=== PATIENT | male | born 1965 | race Caucasian/White ===

== ENCOUNTER → 2018-04-18 07:57 | Outpatient (CLI) | payer OTHER, SELFPAY ==
--- NOTE | 2018-04-18 | DI.MRI.S_ITS ---
PROCEDURE: MR LUMBAR SPINE WO CON INDICATIONS: LUMBAR REGION RADICULOPATHY TECHNIQUE: Noncontrast sagittal T1 spin echo and T2 fast echo, sagittal STIR, axial T1 and T2 fast spin echo through the lumbar spine. In cases with scoliosis, additional coronal T2 fast spin echo may be performed. COMPARISON: None. FINDINGS: Image quality: Excellent. Alignment and Curvature: There is normal bony alignment. Bone Marrow: Marrow is of normal overall signal. No acute vertebral body compression fractures. Spinal Cord: Conus medullaris terminates at the T12-L1 level. Visualized cord demonstrates normal signal and size. Paraspinous Soft Tissues: No paravertebral masses. T12-L1: Normal appearance. L1-L2: Normal appearance. L2-L3: The disc height and disk signal are well-preserved. Mild disc bulge is seen, which is eccentric to the left. Mild bilateral neural foraminal narrowing is seen. Minimal central canal narrowing is seen. L3-L4: The disc height and disk signal are well-preserved. Mild to moderate disc bulge is seen. Mild facet joint hypertrophy is seen. Moderate bilateral neural foraminal narrowing is seen, left worse than right. Mild central canal narrowing is seen. L4-L5: The disc height and disk signal are well-preserved. Mild generalized disc bulge is seen. Mild bilateral neural foraminal narrowing is seen. Mild central canal narrowing is seen. L5-S1: The disc height is well-preserved. Loss of disc signal is seen at this level. Mild disc bulge is seen, with a central/left disc protrusion, as on series 6 image 6 with mass effect upon the transiting left S1 nerve root. Mild facet joint hypertrophy is seen. There is mild left-sided and no significant right-sided neural foraminal narrowing seen. Mild central canal narrowing is seen. IMPRESSION: Lumbar spine degenerative changes are seen, which are overall most prominent at the L5-S1 level. Dictated by: Conor Joyner M.D. on 04/18/2018 at 8:46 Approved by: Conor Joyner M.D. on 04/18/2018 at 8:50
== END ==
DX: M51.16 Intervertebral disc disorders with radiculopathy, lumbar region (principal)
CPT/HCPCS: 72148

== ENCOUNTER → 2019-09-13 10:54 | Outpatient (CLI) | payer OTHER, SELFPAY ==
--- NOTE | 2019-09-13 | DI.RAD.S_ITS ---
PROCEDURE: FL SHOULDER INJECTION MR/CT RT INDICATIONS: hx of shoulder injury TECHNIQUE: The indications, alternatives, benefits, risks, and complications of the procedure were explained to the patient. Written informed consent was obtained and placed in the chart. The shoulder was examined fluoroscopically and a site for needle placement chosen for entry into the glenohumeral joint from an anterior approach. The skin was prepped and draped in a sterile fashion, and 1% lidocaine infiltrated from skin down to joint capsule. A spinal needle was inserted into the glenohumeral joint, and a small amount of iodinated contrast media injected to confirm intra-articular placement of the needle tip. This was followed by approximately 12 mL dilute solution of a gadolinium containing MR contrast agent. The needle was removed and a dressing was applied. The patient was given postprocedural instructions and sent to the MR suite for MR imaging. FINDINGS: A single fluoroscopic spot image demonstrates intra-articular location of injected iodinated contrast. IMPRESSION: Successful fluoroscopically guided administration of dilute Gadolinium solution into the shoulder joint for MR arthrogram. Dictated by: Alexis Abarca M.D. on 09/13/2019 at 12:34 Approved by: Alexis Abarca M.D. on 09/13/2019 at 12:34
== END ==
PROVIDERS: Visit Provider Nurse Practitioner Family
DX: S49.91XA Unspecified injury of right shoulder and upper arm, initial encounter (principal); X58.XXXA Exposure to other specified factors, initial encounter
CPT/HCPCS: 23350; 77002

== ENCOUNTER → 2021-07-04 08:28 | Outpatient (CLI) | payer OTHER, SELFPAY ==
--- NOTE | 2021-07-04 08:30 | DI.RAD.S_ITS ---
PROCEDURE: XR LUMBAR SPINE MIN 4V INDICATIONS: BACK PAIN TECHNIQUE: 5 views of the lumbar spine were acquired, including bilateral oblique views. COMPARISON: None. FINDINGS: Bones: No acute fracture. Multilevel degenerative endplate sclerosis and spurring. Diffuse facet arthropathy. Mild narrowing of the L5-S1 disc space. There is lower thoracic spondylosis and facet disease. Soft tissues: Overlying bowel gas pattern is normal. No suspicious soft tissue calcifications. Oblique images: No pars defects. IMPRESSION: Mild lumbar spondylosis as above. Dictated by: Duc Saldivar M.D. on 07/04/2021 at 10:31 Approved by: Duc Saldivar M.D. on 07/04/2021 at 10:33
== END ==
PROVIDERS: PCP Nurse Practitioner Family; Referring Provider Physical Medicine & Rehabilitation; Visit Provider Physical Medicine & Rehabilitation
DX: M54.9 Dorsalgia, unspecified (principal); M47.816 Spondylosis without myelopathy or radiculopathy, lumbar region; M51.27 Other intervertebral disc displacement, lumbosacral region
CPT/HCPCS: 72110; 99214

== ENCOUNTER → 2021-07-26 10:05 | Outpatient (CLI) | payer OTHER, SELFPAY ==
--- NOTE | 2021-07-26 10:06 | DI.MRI.S_ITS ---
PROCEDURE: MR LUMBAR SPINE WO CON INDICATIONS: Left L5 radiculopathy TECHNIQUE: Noncontrast sagittal T1 spin echo and T2 fast echo, sagittal STIR, axial T1 and T2 fast spin echo through the lumbar spine. In cases with scoliosis, additional coronal T2 fast spin echo may be performed. COMPARISON: [facility] [place], CR, XR LUMBAR SPINE WITH OBLIQUES, 06/27/2018, 9:18. [facility], MR, MR LUMBAR SPINE WO CON, 04/18/2018, 8:43. [facility], CR, XR LUMBAR SPINE MIN 4V, 07/04/2021, 8:33. FINDINGS: Image quality: Excellent. Alignment and Curvature: There is normal bony alignment. Bone Marrow: Marrow is of normal overall signal. No acute vertebral body compression fractures. Spinal Cord: Conus medullaris terminates at the T12-L1 disc level. Visualized cord demonstrates normal signal and size. Paraspinous Soft Tissues: No paravertebral masses. T12-L1: Slight loss of disc signal. No central stenosis. No neural foraminal narrowing. No neural compression. L1-L2: Normal appearance. L2-L3: Loss of disc signal. Mild, diffuse disc bulge. Mild narrowing of the central canal. Mild bilateral neural foraminal narrowing. No neural compression. L3-L4: Loss of disc signal. Mild, diffuse disc bulge. Mild bilateral facet hypertrophy. Mild narrowing of the central canal. Mild bilateral neural foraminal narrowing. No neural compression. Fissure noted in the anterior annulus. L4-L5: Slight loss of disc signal. Mild bilateral facet hypertrophy. No central stenosis. Mild bilateral neural foraminal narrowing. No neural compression. L5-S1: Loss of disc signal. Mild, diffuse disc bulge. Mild bilateral facet hypertrophy. No central stenosis. Mild left neural foraminal narrowing. No neural compression. IMPRESSION: 1. Mild multilevel degenerative disc disease. 2. Mild multilevel facet arthropathy. 3. No severe central canal narrowing. 4. No severe neural foraminal narrowing. 5. No neural compression. Dictated by: Rafia Mccarthy MD, PhD on 07/26/2021 at 21:14 Approved by: Rafia Mccarthy MD, PhD on 07/26/2021 at 21:18
== END ==
PROVIDERS: PCP Nurse Practitioner Family; Referring Provider Physical Medicine & Rehabilitation; Visit Provider Physical Medicine & Rehabilitation
DX: M51.16 Intervertebral disc disorders with radiculopathy, lumbar region (principal); M51.17 Intervertebral disc disorders with radiculopathy, lumbosacral region; M47.26 Other spondylosis with radiculopathy, lumbar region; M47.27 Other spondylosis with radiculopathy, lumbosacral region
CPT/HCPCS: 72148

== ENCOUNTER → 2021-09-02 14:04 | Outpatient (CLI) | payer OTHER, SELFPAY ==
[2021-09-02 16:53] LABS: COVID19 -Nasal RAPID Negative (Negative)
== END ==
PROVIDERS: PCP Nurse Practitioner Family; Referring Provider Physical Medicine & Rehabilitation; Visit Provider Physical Medicine & Rehabilitation
DX: Z20.822 Contact with and (suspected) exposure to COVID-19 (principal)
CPT/HCPCS: 87635; C9803

== ENCOUNTER 2021-09-04 12:37 | Outpatient (CLI) | payer OTHER, SELFPAY ==
[2021-09-04] VITALS (9 sets, daily range): BP systolic 114–146; BP diastolic 69–82; PULSE 70–83; RESP 13–20; TEMP 36.8; O2SAT 94–97
--- NOTE | 2021-09-04 12:38 | DI.RAD.S_ITS ---
PROCEDURE: PAIN L/S TRANSFORAMINAL INJECT INDICATIONS: SPONDYLOSIS COMPARISON: None. FINDINGS: Fluoroscopic spot filming was performed to verify placement of spinal needles at the lower lobe level(s), as labeled on the films. Appropriate location(s) of the needle tip(s) was confirmed by injection of iodinated contrast. IMPRESSION: Needle placement as above. Dictated by: Christiano Campo M.D. on 09/04/2021 at 14:46 Approved by: Christiano Campo M.D. on 09/04/2021 at 15:10
[2021-09-04] MEDS: fentaNYL 100 MCG/2 ML INJ 50 MCG IV (13:05)
[2021-09-04] MEDS: MIDAZOLAM 5 MG/5 ML VIAL IV (13:09)
[2021-09-04] MEDS: IOPAMIDOL 15 ML VIAL 3 ML INJ (13:10)
[2021-09-04] MEDS: BUPIVACAINE 0.25% (PF) VIAL 2 ML INJ (13:10)
[2021-09-04] MEDS: BETAMETHASONE 30 MG/5 ML MDV 6 MG INJ (13:11)
[2021-09-04] MEDS: DEXAMETHASONE 10 MG/ML VIAL 20 MG INJ (13:11)
--- NOTE | 2021-09-04 13:20 | PM.PROC.IR.1 ---
Date/Time/Diagnoses Date of procedure: 09/04/21 Time of procedure: 13:20 Pre-procedure diagnosis: 1. FORAMINAL STENOSIS WITH LE SYMPTOMS Post-procedure diagnosis: same Procedure Notes Procedure: 1. FLUOROSCOPICALLY GUIDED CONTRAST CONTROLLED TRANSFORAMINAL EPIDURAL STEROID INJECTION - Left L5/S1 Indications: Mustapha Espinoza is referred by MIRIAM Alvarenga for treatment of Foraminal Stenosis with Left LE Symptoms Physician: Jake Lamar Total Fluoroscopy time (seconds): 9 Total sedation minutes: 10 Complications: none Procedure in detail & Post-procedure care: FINDINGS Foraminal Nerve Root Compression secondary to disc disease and facet hypertrophy DESCRIPTION OF PROCEDURE Following review of allergy and review of potential side effects and complications, including, but not necessarily limited to, infection, allergic reaction, local tissue breakdown, stroke, temporary or permanent nerve injury, paralysis, and possible , the patient indicated that the patient understood and agreed to proceed. An informed consent document was signed by the patient, witnessed by a nurse, and placed in the patient's chart. Additionally, other treatment options including medications, modalities, and physical therapy were reviewed with the patient. After review of previous anaesthesic history and IV conscious sedation the patient was deemed safe to proceed with today?s procedure with IV conscious sedation as ASA class II designation. Safety time-out was performed to confirm patient ID, procedure to be performed and site of procedure. IV sedation was accomplished with a combination of 4mg of Versed and 50mcg of Fentanyl was administered by the RN after DO order, titrated to patient comfort during the course of the procedure while the patient remained responsive to all verbal commands In the prone position following sterile prep and drape of the lumbar region, the Left L5/S1 posterior neuroforamen was identified fluoroscopically. The skin was anesthetized via a 25-gauge 1.5-inch needle with 1% lidocaine solution. At this point, a 25-gauge 3.5-inch spinal needle was atraumatically introduced and advanced under fluoroscopic guidance through the posterior Left L5/S1 neuroforamen to approximately the anterior aspect of the canal. Depth was confirmed on lateral view. Following negative aspiration, injection of approximately 1.5 cc of Isovue 200 under live fluoroscopy in the AP view confirmed excellent flow along the nerve root, into the epidural space without vascular or intrathecal uptake observed Radiological data, including multiple fluoroscopic views of the lumbosacral spine, reveal a spinal needle at the Left L5/S1 posterior neuroforamen. Subsequent views show flow of contrast material flowing superiorly and inferiorly along the nerve root confirming epidural flow. Subsequently, a test dose of 1.5 cc of 1% lidocaine solution was administered and patient was observed for two minutes for signs or symptoms of complications, including abdominal pain, shortness of breath, bilateral upper or lower extremity weakness, nausea and vomiting, prior to steroid injection. At this point, a total of 3cc or 20mg of dexamethasone and 6mg of betamethasone was injected without incident. The procedure tolerated the procedure well without signs or symptoms of complications prior to transfer to the recovery area continued monitoring without incident. The patient was then transferred to the recovery area where they were observed for an appropriate time after the injection. The patient reported a VAS score of 7 prior to the procedure and a post-procedure VAS of 0. POST OP INSTRUCTIONS The patient was provided a Pain Log to continue to record their response to the target-specific procedure prior to follow-up visit with their referring physician. Additionally, specific post-injection care instructions and a contact number to our office were provided if concerns arise regarding possible complications associated with the procedure are suspected.
== END 2021-09-04 13:45 | disposition home or self-care (01) ==
PROVIDERS: PCP Nurse Practitioner Family; Referring Provider Physical Medicine & Rehabilitation; Visit Provider Physical Medicine & Rehabilitation
DX: M48.07 Spinal stenosis, lumbosacral region (principal); M51.17 Intervertebral disc disorders with radiculopathy, lumbosacral region
CPT/HCPCS: 64483; 99152; J0702; J1100; J2250; J3010

== ENCOUNTER → 2021-12-29 15:17 | Outpatient (CLI) | payer OTHER, SELFPAY ==
[2021-12-29 16:47] LABS: COVID19 -Nasal RAPID Negative (Negative)
== END ==
PROVIDERS: PCP Nurse Practitioner Family; Visit Provider Physical Medicine & Rehabilitation
DX: Z20.822 Contact with and (suspected) exposure to COVID-19 (principal)
CPT/HCPCS: 87635; C9803

== ENCOUNTER 2022-01-01 07:52 | Outpatient (CLI) | payer OTHER, SELFPAY ==
[2022-01-01] VITALS (8 sets, daily range): BP systolic 120–146; BP diastolic 74–94; PULSE 62–74; RESP 13–22; TEMP 36.9; O2SAT 93–98
--- NOTE | 2022-01-01 07:53 | DI.RAD.S_ITS ---
PROCEDURE: PAIN L INTERLAMINAR/CAUDAL INJ INDICATIONS: Spondylosis COMPARISON: None. FINDINGS: Fluoroscopic spot filming was performed to verify placement of spinal needles at the left L5-S1 interlaminar space level(s), as labeled on the films. Appropriate location(s) of the needle tip(s) was confirmed by injection of iodinated contrast. IMPRESSION: [place] needle tip at the left L5-S1 interlaminar space for translaminar epidural steroid injection. Dictated by: Rafia Mccarthy MD, PhD on 01/01/2022 at 11:10 Approved by: Rafia Mccarthy MD, PhD on 01/01/2022 at 11:11
[2022-01-01] MEDS: MIDAZOLAM 5 MG/5 ML VIAL IV (09:31)
[2022-01-01] MEDS: IOPAMIDOL 15 ML VIAL 3 ML INJ (09:36)
[2022-01-01] MEDS: DEXAMETHASONE 10 MG/ML VIAL 20 MG INJ (09:37)
[2022-01-01] MEDS: BETAMETHASONE 30 MG/5 ML MDV 6 MG INJ (09:37)
[2022-01-01] MEDS: BUPIVACAINE 0.25% (PF) VIAL 2 ML INJ (09:37)
--- NOTE | 2022-01-01 09:43 | P.PCN_ITS ---
Date/Time/Diagnoses Date of procedure: 01/01/22 Pre-procedure diagnosis: 1. HNP WITH RADICULAR FEATURES, 2. MULTILEVEL CENTRAL STENOSIS, Post-procedure diagnosis: same Procedure Notes Procedure: 1. FLUOROSCOPICALLY GUIDED CONTRAST CONTROLLED INTERLAMINAR EPIDURAL STEROID INJECTION - L5/S1 Indications: Dian is referred by MIRIAM Alvarenga for treatment of Bilateral Foraminal Stenosis L>R LE symptoms. Physician: Jake Lamar Total Fluoroscopy time (seconds): 7 Total sedation minutes: 7 Complications: none Procedure in detail & Post-procedure care: FINDINGS Multilevel Central Spinal Stenosis with Nerve Root Compression DESCRIPTION OF PROCEDURE Fluoroscopically guided, contrast-controlled L5/S1 translaminar epidural steroid injection. Following review of allergy and review of potential side effects and complications, including, but not necessarily limited to, infection, allergic reaction, local tissue breakdown, temporary as well as permanent nerve injury, paralysis, stroke and possible , the patient indicated that the patient understood and agreed to proceed. An informed consent document was signed by the patient, witnessed by a nurse, and placed in the patient's chart. Additionally, other treatment options including modalities, medications, and physical therapy were reviewed with the patient. After review of previous anaesthesic history and IV conscious sedation the patient was deemed safe to proceed with today?s procedure with IV conscious sedation as ASA class II designation. Safety time-out was performed to confirm patient ID, procedure to be performed and site of procedure. IV sedation was accomplished with a combination of 3mg of Versed administered by the RN after DO order, titrated to patient comfort during the course of the procedure while the patient remained responsive to all verbal commands. In the prone position, following sterile prep and drape of the lumbar region, the L5/S1 translaminar space was identified fluoroscopically. The skin was anesthetized via a 25-gauge, 1.5-inch needle with 1% lidocaine solution. At this point, a 22-gauge short bevel spinal needle was atraumatically introduced and advanced under fluoroscopic guidance into the region of the L5/S1 translaminar space. Depth was confirmed on lateral view. Radiological data, including multiple fluoroscopic views of the lumbar spine, reveal a spinal needle at the L5/S1 translaminar space. Lateral views then show placement of the needle in the epidural space. Subsequent views show contrast material flowing superiorly and inferiorly in the epidural space. No vascular or intrathecal uptake is observed. At this point, using loss of resistance technique with saline and air, the epidural space was entered. This was confirmed following negative aspiration w ith injection of approximately 1.5cc of Isovue 200, showing excellent epidural flow without vascular or intrathecal uptake. At this point, 1 cc of 1% lidocaine solution combined with 3cc or 20mg of dexamethasone and 6mg of betamethasone was injected without incident. The patent tolerated the procedure without signs of symptoms of complications prior to transfer to the recovery area for further monitoring. The patient was then transferred to the recovery area where they were observed for an appropriate period of time after the injection. The patient reported a VAS score of 6 prior to the procedure and a post-procedure VAS of 0. POST OP INSTRUCTIONS The patient was provided a Pain Log to continue to record their response to the target-specific procedure prior to follow-up visit with their referring physician. Additionally, specific post-injection care instructions and a contact number to our office were provided if concerns arise regarding possible compli cations associated with the procedure are suspected.
== END 2022-01-01 10:01 | disposition home or self-care (01) ==
LOC: RAD 07:53
PROVIDERS: PCP Nurse Practitioner Family; Referring Provider Physical Medicine & Rehabilitation; Visit Provider Physical Medicine & Rehabilitation
DX: M51.17 Intervertebral disc disorders with radiculopathy, lumbosacral region (principal); M48.07 Spinal stenosis, lumbosacral region
CPT/HCPCS: 62323; J0702; J1100; J2250

== ENCOUNTER 2022-06-25 15:09 | Outpatient (CLI) | payer OTHER, SELFPAY ==
[2022-06-25] VITALS (8 sets, daily range): BP systolic 117–136; BP diastolic 68–80; PULSE 63–74; RESP 15–19; TEMP 37; O2SAT 95–99
--- NOTE | 2022-06-25 15:13 | DI.RAD.S_ITS ---
PROCEDURE: PAIN L/SI FACET INJ/BLK 1STL INDICATIONS: SPONDYLOSIS COMPARISON: [facility], XA, PAIN L INTERLAMINAR/CAUDAL INJ, 01/01/2022, 9:34. FINDINGS: Fluoroscopic spot filming was performed to verify placement of spinal needles on the left at the L3-L4, L4-L5, and L5-S1 levels, as labeled on the films. Appropriate location of the needle tips was confirmed by injection of iodinated contrast. IMPRESSION: Intraprocedural examination demonstrating appropriate positions of the needles. Dictated by: Conor Joyner M.D. on 06/25/2022 at 17:06 Approved by: Conor Joyner M.D. on 06/25/2022 at 17:06
[2022-06-25] MEDS: MIDAZOLAM 2 MG/2 ML VIAL 4 MG IV (16:28)
[2022-06-25] MEDS: IOPAMIDOL 15 ML VIAL 3 ML INJ (16:32)
[2022-06-25] MEDS: BETAMETHASONE 30 MG/5 ML MDV 12 MG INJ (16:32)
[2022-06-25] MEDS: BUPIVACAINE 0.5% MDV 5 ML SUBCUT (16:33)
--- NOTE | 2022-06-25 16:55 | P.PCN_ITS ---
Date/Time/Diagnoses Date of procedure: 06/25/22 Time of procedure: 16:55 Pre-procedure diagnosis: 1. FACET ARTHROPATHY, 2. AXIAL LBP, 3. MULTILEVEL DDD Post-procedure diagnosis: same Procedure Notes Procedure: 1. FLUOROSCOPICALLY GUIDED CONTRAST CONTROLLED FACET JOINT INJECTIONS LEFT L3/4, L4/5, L5/S1 Indications: Dian is referred by MIRIAM Alvarenga for treatment of Axial LBP Physician: Jake Lamar Total Fluoroscopy time (seconds): 8 Total sedation minutes: 13 Complications: none Procedure in detail & Post-procedure care: FINDINGS Multilevel Facet Arthropathy with Clinically significant axial LBP DESCRIPTION OF PROCEDURE Fluoroscopically guided, contrast-controlled left L3/4, L4/5, L5/S1 facet joint injections. Following review of allergy and review of potential side effects and complications, including, but not necessarily limited to, infection, allergic reaction, local tissue breakdown, stroke, temporary or permanent nerve injury, paralysis, and possible , the patient indicated that the patient understood and agreed to proceed. An informed consent document was signed by the patient, witnessed by a nurse, and placed in the patient's chart. Additionally, other treatment options including medications, modalities, and physical therapy were reviewed with the patient. After review of previous anaesthesic history and IV conscious sedation the patient was deemed safe to proceed with today?s procedure with IV conscious sedation as ASA class II designation. Safety time-out was performed to confirm patient ID, procedure to be performed and site of procedure. IV sedation was accomplished with a combination of 4mg of Versed was administered by the RN after DO order, titrated to patient comfort during the course of the procedure while the patient remained responsive to all verbal commands. In the prone position, following sterile prep and drape of the lumbar region, the posterior aspect of the left L3/4, L4/5, L5/S1 facet joints were identified fluoroscopically. The skin was anesthetized via a 25-gauge 1.5-inch needle with 1% lidocaine solution into the corresponding facet joints. At this point, a 22- gauge 3.5-inch spinal needle was atraumatically introduced and advanced under fluoroscopic guidance into the corresponding facet joints. Following negative aspiration, injections of approximately 0.2-cc of Isovue 200 confirmed interarticular placement without vascular uptake. Radiological data, including multiple fluoroscopic views of the lumbosacral spine, reveal a spinal needle at the left L3/4, L4/5, L5/S1 facet joints. Subsequent views show flow of contrast material both superiorly and inferiorly within the joint space without vascular or intrathecal uptake. At this point, a total of 0.5 cc including a mixture of 0.25cc Marcaine and 0.25cc betamethasone was injected without complication into each of the corresponding facet joints. The procedure tolerated the procedure well without signs or symptoms of complications prior to transfer to the recovery area continued monitoring without incident. The patient was then transferred to the recovery area where they were observed for an appropriate period of time after the injection. The patient reported a VAS score of 7 prior to the procedure and a post-procedure VAS of 0. POST OP INSTRUCTIONS The patient was provided a Pain Log to continue to record their response to the target-specific procedure prior to follow-up visit with their referring physician. Additionally, specific post-injection care instructions and a contact number to our office were provided if concerns arise regarding possible complications associated with the procedure are suspected.
== END 2022-06-25 17:06 | disposition home or self-care (01) ==
PROVIDERS: PCP Nurse Practitioner Family; Referring Provider Physical Medicine & Rehabilitation; Visit Provider Physical Medicine & Rehabilitation
DX: M47.816 Spondylosis without myelopathy or radiculopathy, lumbar region (principal); M47.817 Spondylosis without myelopathy or radiculopathy, lumbosacral region; M51.36 Other intervertebral disc degeneration, lumbar region; M51.37 Other intervertebral disc degeneration, lumbosacral region
CPT/HCPCS: 64493; 64494; 64495; 99152; J0702; J2250

== ENCOUNTER 2022-10-27 15:01 | Outpatient (CLI) | payer OTHER, SELFPAY ==
[2022-10-27] VITALS (7 sets, daily range): BP systolic 113–137; BP diastolic 70–88; PULSE 62–81; RESP 13–20; TEMP 36.4; O2SAT 95–97
--- NOTE | 2022-10-27 15:04 | DI.RAD.S_ITS ---
PROCEDURE: PAIN L/SI FACET INJ/BLK 1STL INDICATIONS: SPONDYLOSIS COMPARISON: [facility], , PAIN L/SI FACET INJ/BLK 1STL, 06/25/2022, 16:34. FINDINGS: Fluoroscopic spot filming was performed to verify placement of spinal needles at the needle placement overlying L3 through S1 level(s), as labeled on the films. Appropriate location(s) of the needle tip(s) was confirmed by injection of iodinated contrast. IMPRESSION: Needle placement as above. Dictated by: Sharda Robert M.D. on 10/28/2022 at 13:35 Approved by: Sharda Robert M.D. on 10/28/2022 at 13:36
[2022-10-27] MEDS: MIDAZOLAM 2 MG/2 ML VIAL IV (15:53)
[2022-10-27] MEDS: LIDOCAINE 1% (PF) 5 ML INJ (15:58)
[2022-10-27] MEDS: IOPAMIDOL 15 ML VIAL 3 ML INJ (15:58)
[2022-10-27] MEDS: BUPIVACAINE 0.5% (PF) 30 ML VIAL 5 ML INJ (15:59)
--- NOTE | 2022-11-03 12:10 | PM.PROC.IR.1 ---
Date/Time/Diagnoses Date of procedure: 10/27/22 Time of procedure: 16:50 Pre-procedure diagnosis: 1. FACET ARTHROPATHY Post-procedure diagnosis: same Procedure Notes Procedure: 1. Right L3, L4, L5 and S1 MB BLOCKS LA Indications: Dian is referred by MIRIAM Alvarenga for treatment of Right Axial LBP. Physician: Jake Lamar Total Fluoroscopy time (seconds): 14 Total sedation minutes: 16 Complications: none Procedure in detail & Post-procedure care: DESCRIPTION OF PROCEDURE Fluoroscopically guided, contrast-controlled right L3, L4, L5 and S1 medial branch blocks with 0.5cc of 0.5% Marcaine. Following review of allergy and review of potential side effects and complications, including, but not necessarily limited to, infection, allergic reaction, local tissue breakdown, nerve injury, paralysis, stroke and possible , the patient indicated that the patient understood and agreed to proceed. An informed consent document was signed by the patient, witnessed by a nurse, and placed in the patient's chart. After review of previous anaesthesic history and IV conscious sedation the patient was deemed safe to proceed with today?s procedure with IV conscious sedation as ASA class II designation. Safety time-out was performed to confirm patient ID, procedure to be performed and site of procedure. IV sedation was accomplished with a combination of 2mg of Versed was administered by the RN after DO order, titrated to patient comfort during the course of the procedure while the patient remained responsive to all verbal commands In the prone position, following sterile prep and drape of the lumbar region, the right L3, L4, L5 and S1 anatomical location of the medial branch of the dorsal ramus was identified fluoroscopically. Subsequently an anesthetic skin wheal using 1% lidocaine solution was initiated at each of the anatomical spots. Subsequently then a 22-gauge 3.5-inch spinal needle was atraumatically introduced and advanced under fluoroscopic guidance at each of the corresponding sites at the right L4, L5 and S1 MB. After negative aspiration, 0.2 cc of Isovue 200 was injected, confirming placement without vascular or intrathecal uptake. Subsequently then 0.5 cc of 0.5% Marcaine solution was injected at each of the corresponding sites at the right L3, L4, L5 and S1 medial branch locations. The patient tolerated the procedure well without signs or symptoms of complications. The procedure tolerated the procedure well without signs or symptoms of complications prior to transfer to the recovery area continued monitoring without incident. Post-procedure, the patient was monitored initiating provocative activities to measure the amount of relief from block of the facetogenic pain. The patient reported a VAS of 7 prior to the procedure and a post-procedure VAS of 1. It has been a pleasure to assist in the diagnostic and therapeutic care of your patient. POST OP INSTRUCTIONS The patient was provided with a Pain Log to complete over the next several hours and subsequent days prior to the patient's follow up with the ordering physician. If the patient has 911 telecommunicator relief to the solution applied, then they may be a candidate for medial branch rhizotomy. The patient is aware, was provided, once again, with a Pain Log and will follow up with the referring physician for review and clinical correlation.
== END 2022-10-27 16:29 | disposition home or self-care (01) ==
PROVIDERS: PCP Nurse Practitioner Family; Referring Provider Physical Medicine & Rehabilitation; Visit Provider Physical Medicine & Rehabilitation
DX: M47.816 Spondylosis without myelopathy or radiculopathy, lumbar region (principal); M47.817 Spondylosis without myelopathy or radiculopathy, lumbosacral region
CPT/HCPCS: 64493; 64494; 64495; 99152; J2250

== ENCOUNTER → 2023-06-17 13:06 | Outpatient (CLI) | payer OTHER, SELFPAY | PROVIDERS: Absent Provider Nurse Practitioner Family; Family Provider Nurse Practitioner Family; PCP Nurse Practitioner Family; Referring Provider Physical Medicine & Rehabilitation; Visit Provider Physical Medicine & Rehabilitation | DX: M51.27 Other intervertebral disc displacement, lumbosacral region (principal) | CPT/HCPCS: 95886; 95911 ==

== ENCOUNTER 2023-07-07 18:16 | Emergency (ER) | payer OTHER, SELFPAY ==
[2023-07-07] VITALS (9 sets, daily range): BP systolic 152–166; BP diastolic 89–99; PULSE 82–88; RESP 16–18; TEMP 36.8–37.1; O2SAT 94–97; BMI 33.2
--- NOTE | 2023-07-07 19:10 | DI.RAD.S_ITS ---
PROCEDURE: XR CHEST 1V INDICATIONS: Hemoptysis TECHNIQUE: One view of the chest was acquired. COMPARISON: None. FINDINGS: Surgical changes and devices: None. Lungs and pleura: Right hemidiaphragm elevation the left diaphragmatic eventration. Lungs are clear. No pleural effusions or pneumothorax. Mediastinum: There are prominent soft tissue densities in upper thorax at the thoracic inlet. Mediastinal contours appear normal. Heart size is normal. Bones and chest wall: No suspicious bony lesions. Overlying soft tissues appear unremarkable. IMPRESSION: 1. No acute cardiopulmonary disease. 2. Prominent paratracheal soft tissue in upper thorax bilaterally. Differential diagnoses are substernal goiter versus lymphadenopathy. Consider chest CT for further evaluation. Dictated by: Panfilo Carrillo M.D. on 07/07/2023 at 19:24 Approved by: Panfilo Carrillo M.D. on 07/07/2023 at 19:41
[2023-07-07 22:46] LABS: Add Manual Diff / Slide Review NO; Basophils Absolute Auto 100 /uL (0-100); Basophils Percent Auto 1.2 % (0-2); Eosinophils Absolute Auto 200 /uL (0-450); Hematocrit 44.6 % (41-53); Hemoglobin 15.3 g/dL (13.5-17.5); Lymphocytes Absolute Auto 3900 /uL (1100-4500); Lymphocytes Percent Auto 37.7 % (25-40); Mean Corpuscular HGB Conc 34.3 % (30-36); Mean Corpuscular Hemoglobin 29.6 PG (26-34); Mean Corpuscular Volume 86.4 fL (80-100); Monocytes Absolute Auto 1200 /uL (0-900); Monocytes Percent Auto 11.2 % (3-14); Neutrophils Absolute Auto 4900 /uL (1500-7000); Neutrophils Percent Auto 47.9 % (50-75); Platelet Count 261 X10^3/uL (150-400); Red Blood Cell Count 5.17 X10^6/uL (4.5-5.9); Red Cell Distribution Width 13.3 % (11.6-14.8); White Blood Cell Count 10.3 X10^3/uL (4.5-11.0)
[2023-07-07 22:48] LABS: INR 1.1 (0.9-1.3); Prothrombin Time 12.6 SECONDS (10.1-12.7)
[2023-07-07 22:51] LABS: PTT Partial Thromboplastin Tim 28 SECONDS (26-36)
[2023-07-07 22:53] LABS: Alanine Aminotransferase 39 IU/L (<50); Albumin 4.8 g/dL (3.5-5.0); Albumin Globulin Ratio 1.3 (1.0-2.8); Alkaline Phosphatase 53 U/L (38-126); Aspartate Aminotransferase 38 IU/L (17-59); BUN Creatinine Ratio 26.9 (6-22); Bilirubin Total 0.7 mg/dL (0.2-1.3); Blood Urea Nitrogen 18 mg/dL (9-20); Calcium 9.7 mg/dL (8.4-10.2); Carbon Dioxide 25 mmol/L (22-32); Chloride 97 mmol/L (98-107); Estimated Glomerular Filt Rate > 60 mL/min (>60); Globulin 3.7 g/dL (1.7-4.1); Glucose 112 mg/dL (70-100); HEMOLYSIS < 15 (0-50); Potassium 3.9 mmol/L (3.4-5.1); Sodium 135 mmol/L (137-145); Total Protein 8.5 g/dL (6.3-8.2)
--- NOTE | 2023-07-07 22:55 | ED.URI ---
HPI - URI/Sore Throat General Chief Complaint: Upper Respiratory Symptoms Stated Complaint: coughing up blood Time Seen by Provider: 07/07/23 19:10 Source: patient Mode of arrival: Ambulatory Limitations: no limitations History of Present Illness HPI Narrative: 58-year-old male history of hypertension, dyslipidemia, chronic low back pain with complaint of recent upper respiratory infection that has been improving. Patient is on about day 13 but has had streaks of small amount of blood most days it was initially green yellow sputum has since become clear but has still had very small scant streaks. Patient states no fevers. He states his nasal congestion is resolving. He denies any throat pain or sore throat. He denies any sensation of pressing on his neck or throat, no changes to voice. No chest pain or shortness of breath. No nausea or vomiting. He does still have some persistent cough. Patient denies any nausea or vomiting, no diarrhea constipation, no urinary symptoms. No bruising, petechiae, abnormal bleeding or other changes otherwise. Patient does not take any aspirin or any regular daily anticoagulants. He has not had similar issues in the past. No known drug allergies. Denies any prior surgeries. Former smoker, no recreational drugs. Related Data Home Medications Medication Instructions Recorded Confirmed acetaminophen 500 mg tablet 500 mg PO Q6H PRN 07/04/21 07/05/23 (Tylenol Extra Strength) atorvastatin 20 mg tablet (Lipitor) 20 mg PO DAILY 07/04/21 07/05/23 diclofenac sodium 1 % topical gel 2 g topical QID 07/04/21 07/05/23 metronidazole 1 % topical gel g topical 09/23/22 07/05/23 lisinopril 40 mg tablet 40 mg PO DAILY 04/05/23 07/05/23 hydrochlorothiazide 12.5 mg tablet 12.5 mg PO DAILY 07/05/23 07/05/23 Previous Rx's Medication Instructions Recorded gabapentin 300 mg capsule 300 mg PO .COMPLEX #90 caps 04/05/23 celecoxib 200 mg capsule (Celebrex) 200 mg PO DAILY #30 caps 07/05/23 diazepam 10 mg tablet (Valium) 10 mg PO .COMPLEX PRN 1-2 prior to 07/05/23 MRI and for possible steroid flare #10 tabs Allergies Allergy/AdvReac Type Severity Reaction Status Date / Time No Known Drug Allergies Allergy Verified 11/13/23 11:50 Review of Systems Review of Systems ROS Unobtainable: All systems reviewed & are unremarkable except as noted in HPI and below Patient History Medical History Facet arthropathy, lumbar Herniated nucleus pulposus, L5-S1, left Surgical History H/O shoulder surgery Family History Unknown No pertinent family history Social History Smoking Status: Former smoker Smoking Status: Former smoker Substance Use Type: does not use Exam Narrative Exam Narrative: GEN: well nourished, well appearing male, alert and oriented x 3, patient appears to be in no acute distress. HEENT: Atraumatic, pupils are equal round reactive to light, extraocular movements are intact, nares are clear, there is no conjunctival pallor. Throat is clear without any exudates, erythema, tonsillar enlargement or uvular deviation, no thyromegaly, no lymphadenopathy. Normal speech. No hoarseness. HEART: Regular rate and rhythm without murmur, clicks, rubs. LUNGS:Lungs clear to auscultation, no wheezes, rales, crackles, chest moves symmetrically ABD:bowel sounds normal, soft, non-tender, no guarding, rebound, rigidity, no masses noted, no hepatosplenomegaly MSCL: Non-tender, no muscle atrophy, muscles strength 5/5 upper and lower extremities, full range of motion, normal gait NEURO:CN 2-12 intact, sensation normal SKIN: No rash, erythema, petechiae or ecchymosis noted. Initial Vital Signs Initial Vital Signs: Vital Signs Temperature 98.8 F 07/07/23 18:43 Pulse Rate 87 07/07/23 18:43 Respiratory Rate 16 07/07/23 18:43 Blood Pressure 162/96 H 07/07/23 18:43 Pulse Oximetry 96 07/07/23 18:43 Oxygen Delivery Method Room Air 07/07/23 18:43 Course Orders Ordered: ED Orders 07/07/23 19:10 XR chest 1V Stat 07/07/23 22:33 CBC Auto Diff [Complete Blood Count AUTO DIFF] Stat CMP [Comprehensive Metabolic Panel] Stat PTT Partial Thromboplastin Rahul Stat Prothrombin Time INR Stat 07/07/23 23:02 CT chest w con Stat Vital Signs Vital signs: Vital Signs - 8 hr 07/07/23 20:49 07/07/23 21:00 07/07/23 21:30 Temperature Pulse Rate 83 87 87 Respiratory Rate 16 Blood Pressure 166/99 H Pulse Oximetry 96 96 95 Oxygen Delivery Method Room Air 07/07/23 22:00 07/07/23 22:30 07/07/23 23:00 Temperature Pulse Rate 88 87 82 Respiratory Rate Blood Pressure Pulse Oximetry 97 94 96 Oxygen Delivery Method 07/07/23 23:30 07/07/23 23:58 07/07/23 23:58 Temperature 98.3 F Pulse Rate 82 84 Respiratory Rate 18 Blood Pressure 152/89 H Pulse Oximetry 95 94 Oxygen Delivery Method Room Air MDM - URI/Sore Throat Lab Data 07/07/23 22:33 07/07/23 22:33 Labs: Lab Results 07/07/23 Range/Units 22:33 WBC 10.3 (4.5-11.0) X10^3/uL RBC 5.17 (4.5-5.9) X10^6/uL Hgb 15.3 (13.5-17.5) g/dL Hct 44.6 (41-53) % MCV 86.4 (80-100) fL MCH 29.6 (26-34) PG MCHC 34.3 (30-36) % RDW 13.3 (11.6-14.8) % Plt Count 261 (150-400) X10^3/uL Neut % (Auto) 47.9 L (50-75) % Lymph % (Auto) 37.7 (25-40) % [place] % (Auto) 11.2 (3-14) % Eos % (Auto) 2.0 (2-4) % Baso % (Auto) 1.2 (0-2) % Neut # (Auto) 4900 (1157-8681) /uL Lymph # (Auto) 3900 (5366-9540) /uL [place] # (Auto) 1200 H (0-900) /uL Eos # (Auto) 200 (0-450) /uL Baso # (Auto) 100 (0-100) /uL PT 12.6 (10.1-12.7) SECONDS INR 1.1 (0.9-1.3) APTT 28 (26-36) SECONDS Sodium 135 L (137-145) mmol/L Potassium 3.9 (3.4-5.1) mmol/L Chloride 97 L (98-107) mmol/L Carbon Dioxide 25 (22-32) mmol/L BUN 18 (9-20) mg/dL Creatinine 0.67 (0.66-1.25) mg/dL Estimated GFR > 60 (>60) mL/min BUN/Creatinine Ratio 26.9 H (6-22) Glucose 112 H (70-100) mg/dL Calcium 9.7 (8.4-10.2) mg/dL Total Bilirubin 0.7 (0.2-1.3) mg/dL AST 38 (17-59) IU/L ALT 39 (<50) IU/L Alkaline Phosphatase 53 (38-126) U/L Total Protein 8.5 H (6.3-8.2) g/dL Albumin 4.8 (3.5-5.0) g/dL Globulin 3.7 (1.7-4.1) g/dL Albumin/Globulin Ratio 1.3 (1.0-2.8) Imaging Data Chest x-ray: Radiologist's Impression: [place] [address] XRay Report Signed Patient: Mustapha Clarke MR#: [id number] : 1965 Acct:[id number] Age/Sex: 58 / M Date of Service: 07/07/23 Loc: ED Accession Number: [id number] Procedure: XR chest 1V Ordering Provider: Gerry Menendez D.O. PROCEDURE: XR CHEST 1V INDICATIONS: Hemoptysis TECHNIQUE: One view of the chest was acquired. COMPARISON: None. FINDINGS: Surgical changes and devices: None. Lungs and pleura: Right hemidiaphragm elevation the left diaphragmatic eventration. Lungs are clear. No pleural effusions or pneumothorax. Mediastinum: There are prominent soft tissue densities in upper thorax at the thoracic inlet. Mediastinal contours appear normal. Heart size is normal. Bones and chest wall: No suspicious bony lesions. Overlying soft tissues appear unremarkable. IMPRESSION: 1. No acute cardiopulmonary disease. 2. Prominent paratracheal soft tissue in upper thorax bilaterally. Differential diagnoses are substernal goiter versus lymphadenopathy. Consider chest CT for further evaluation. Dictated by: Panfilo Carrillo M.D. on 07/07/2023 at 19:24 Approved by: Panfilo Carrillo M.D. on 07/07/2023 at 19:41 CT scan - chest: Radiologist's Impression: [address] [address] [address] Scan Report Signed Patient: Mustapha Clarke MR#: [id number] : 1965 Acct:[id number] Age/Sex: 58 / M Date of Service: 07/07/23 Loc: ED Accession Number: [id number] Procedure: CT chest w con Ordering Provider: Ruth Henson D.O. PROCEDURE: CT CHEST W CON INDICATIONS: recent uri, bloody streaks promiment soft tissue density upp TECHNIQUE: After the administration of intravenous contrast, 5 mm thick sections acquired from the pulmonary apices to the posterior costophrenic angles. 1 mm axial lung, 5 mm thick coronal and sagittal reformats and 7 mm axial MIP were acquired. For radiation dose reduction, the following was used: automated exposure control, adjustment of mA and/or kV according to patient size. COMPARISON: [facility], CR, XR CHEST 1V, 07/07/2023, 19:16. FINDINGS: Image quality: Excellent. Lungs and pleura: No acute air space opacities. No pleural effusions or pneumothorax. Central and peripheral airways are patent and normal in caliber. Mediastinum: Heart size is normal. No pericardial effusion. No mediastinal or hilar adenopathy by size criteria. Thoracic aorta and central pulmonary arteries are normal in size. Esophagus is normal in caliber. No hiatal hernia. Aortic valve calcifications. Bones and chest wall: No suspicious bony lesions. No vertebral body compression fractures. No axillary or supraclavicular adenopathy by size criteria. Thyroid gland is normal in size . Prominent 1st rib costosternal calcifications. Abdomen: Visualized upper abdominal solid organs appear normal. Upper abdominal bowel loops are normal in caliber. IMPRESSION: Prominent 1st rib costosternal calcifications, corresponding to chest x-ray findings. No acute cardiopulmonary findings otherwise. Aortic valve calcifications. Dictated by: Hero Tello M.D. on 07/07/2023 at 23:31 Approved by: Hero Tello M.D. on 07/07/2023 at 23:34 [facility] Narrative Medical decision making narrative: Patient has had improvement of upper respiratory symptoms but a little bit of persistent bloody streaking, chest x-ray shows some prominent possible paratracheal tissue change. On physical exam patient does not have any obvious changes he does not have any thyromegaly or enlarged cervical lymph nodes that are palpable. CBC shows low neutrophils otherwise normal platelets hemoglobin and white count, coags are negative, chemistry shows sodium 135 chloride 97 glucose is 112 normal renal function electrolytes otherwise with total protein 8.5. Discussed with patient CT with contrast of the chest was obtained shows prominent 1st rib costal sternal calcifications no mass or other suspicious changes or lesions noted. Discussed with patient's suspect his hemoptysis is secondary to his recent infection which has been improving. Discussed does need to follow-up if he is having any persistence and should have further workup if it does not resolve. Discharge Plan Departure Patient Disposition: Home Clinical Impression: Hemoptysis, Upper respiratory infection Instructions: DI for Hemoptysis Activity Restrictions/Additional Instructions: Your workup today is overall reassuring the changes on your chest x-ray or secondary to costal sternal 1st rib calcifications and there are no masses or lesions appreciated on your imaging. If your hemoptysis does not resolve you should follow up for further imaging such as bronchoscopy with pulmonology or ENT evaluation. I suspect that the recent blood with your cough has been from your recent infection in his out resolve it should go away but if it does not you do need to be seen. Please return if you are having any increasing amount of bleeding, fevers, new chest pain, shortness of breath, lightheadedness or passing out, vomiting, abnormal bruising or bleeding or other new or concerning changes. Prescriptions: No Action lisinopril 40 mg tablet 40 mg PO DAILY gabapentin 300 mg capsule 300 mg PO .COMPLEX Qty: 90 2RF Rx Instructions: 1-2 PO Tid to begin at HS and titrate to pain relief hydrochlorothiazide 12.5 mg tablet 12.5 mg PO DAILY diazepam [Valium] 10 mg tablet 10 mg PO .COMPLEX MDD 3 tabs PRN (Reason: 1-2 prior to MRI and for possible steroid flare) Qty: 10 0RF Rx Instructions: 10 mg PO PRN; celecoxib [Celebrex] 200 mg capsule 200 mg PO DAILY Qty: 30 2RF atorvastatin [Lipitor] 20 mg tablet 20 mg PO DAILY diclofenac sodium 1 % gel 2 g topical QID Rx Instructions: apply to single elbow, wrist or hand; for hand includes palm/fingers/back of hand acetaminophen [Tylenol Extra Strength] 500 mg tablet 500 mg PO Q6H PRN metronidazole 1 % gel topical Referrals: Mikayla Alvarenga ARNP [Primary Care Provider] - Stand Alone Forms: Patient Portal/API
--- NOTE | 2023-07-07 23:02 | DI.CT.S_ITS ---
PROCEDURE: CT CHEST W CON INDICATIONS: recent uri, bloody streaks promiment soft tissue density upp TECHNIQUE: After the administration of intravenous contrast, 5 mm thick sections acquired from the pulmonary apices to the posterior costophrenic angles. 1 mm axial lung, 5 mm thick coronal and sagittal reformats and 7 mm axial MIP were acquired. For radiation dose reduction, the following was used: automated exposure control, adjustment of mA and/or kV according to patient size. COMPARISON: [facility], CR, XR CHEST 1V, 07/07/2023, 19:16. FINDINGS: Image quality: Excellent. Lungs and pleura: No acute air space opacities. No pleural effusions or pneumothorax. Central and peripheral airways are patent and normal in caliber. Mediastinum: Heart size is normal. No pericardial effusion. No mediastinal or hilar adenopathy by size criteria. Thoracic aorta and central pulmonary arteries are normal in size. Esophagus is normal in caliber. No hiatal hernia. Aortic valve calcifications. Bones and chest wall: No suspicious bony lesions. No vertebral body compression fractures. No axillary or supraclavicular adenopathy by size criteria. Thyroid gland is normal in size . Prominent 1st rib costosternal calcifications. Abdomen: Visualized upper abdominal solid organs appear normal. Upper abdominal bowel loops are normal in caliber. IMPRESSION: Prominent 1st rib costosternal calcifications, corresponding to chest x-ray findings. No acute cardiopulmonary findings otherwise. Aortic valve calcifications. Dictated by: Hero Tello M.D. on 07/07/2023 at 23:31 Approved by: Hero Tello M.D. on 07/07/2023 at 23:34
== END 2023-07-08 | disposition home or self-care (01) ==
PROVIDERS: Emergency Provider Emergency Medicine; Family Provider Nurse Practitioner Family; PCP Nurse Practitioner Family
DX: R04.2 Hemoptysis (principal); J06.9 Acute upper respiratory infection, unspecified
CPT/HCPCS: 36415; 71045; 71260; 80053; 85025; 85610; 85730; 99284; Q9967

== ENCOUNTER 2023-08-10 15:03 | Outpatient (CLI) | payer OTHER, SELFPAY ==
[2023-08-10] VITALS (10 sets, daily range): BP systolic 108–151; BP diastolic 60–85; PULSE 70–84; RESP 16–20; TEMP 36.9; O2SAT 95–97
--- NOTE | 2023-08-10 16:00 | DI.RAD.S_ITS ---
PROCEDURE: PAIN L/SI FACET INJ/BLK 1STL INDICATIONS: FACET ARTHROPATHY COMPARISON: [facility], XA, PAIN L/SI FACET INJ/BLK 1STL, 10/27/2022, 16:58. FINDINGS: Fluoroscopic spot filming was performed to verify placement of spinal needles at the left L3, L4, L5, and S1 medial branch levels (s), as labeled on the films. IMPRESSION: Imaging guidance utilized for multilevel lumbar medial branch block procedure. Dictated by: Aayush Wetzel M.D. on 08/10/2023 at 20:22 Approved by: Aayush Wetzel M.D. on 08/10/2023 at 20:23
[2023-08-10] MEDS: MIDAZOLAM 2 MG/2 ML VIAL IV (16:08)
[2023-08-10] MEDS: LIDOCAINE 2% INJ SDV 5ML 10 ML INJ (16:14)
[2023-08-10] MEDS: iopamidoL 15 ML VIAL 3 ML INJ (16:14)
--- NOTE | 2023-08-10 16:23 | PM.PROC.IR.1 ---
Date/Time/Diagnoses Date of procedure: 08/10/23 Time of procedure: 16:23 Pre-procedure diagnosis: FACET ARTHROPATHY Post-procedure diagnosis: same Procedure Notes Procedure: 1. Left L3, L4, L5 and S1 MB BLOCKS SA Indications: Mustapha Espinoza is referred by MIRIAM Alvarenga for treatment of Left Axial LBP. Physician: Jake Lamar Total Fluoroscopy time (seconds): 8 Total sedation minutes: 11 Complications: none Procedure in detail & Post-procedure care: DESCRIPTION OF PROCEDURE Fluoroscopically guided, contrast-controlled left L3, L4, L5 and S1 medial branch blocks with 0.5cc of 2% Lidocaine. Following review of allergy and review of potential side effects and complications, including, but not necessarily limited to, infection, allergic reaction, local tissue breakdown, nerve injury, paralysis, stroke and possible , the patient indicated that the patient understood and agreed to proceed. An informed consent document was signed by the patient, witnessed by a nurse, and placed in the patient's chart. After review of previous anaesthesic history and IV conscious sedation the patient was deemed safe to proceed with today?s procedure with IV conscious sedation as ASA class II designation. Safety time-out was performed to confirm patient ID, procedure to be performed and site of procedure. IV sedation was accomplished with a combination of 2mg of Versed was administered by the RN after DO order, titrated to patient comfort during the course of the procedure while the patient remained responsive to all verbal commands. In the prone position, following sterile prep and drape of the lumbar region, the left L3, L4, L5 and S1 anatomical location of the medial branch of the dorsal ramus was identified fluoroscopically. Subsequently an anesthetic skin wheal using 1% lidocaine solution was initiated at each of the anatomical spots. Subsequently then a 22-gauge 3.5-inch spinal needle was atraumatically introduced and advanced under fluoroscopic guidance at each of the corresponding sites at the left L3, L4, L5 and S1 MB. After negative aspiration, 0.2cc of Isovue 200 was injected, confirming placement without vascular or intrathecal uptake. Subsequently then 0.5cc of 2% Lidocaine solution was injected at each of the corresponding sites at the left L3, L4, L5 and S1 medial branch locations. The patient tolerated the procedure well without signs or symptoms of complications. The patient tolerated the procedure well without signs or symptoms of complications prior to transfer to the recovery area continued monitoring without incident. Post-procedure, the patient was monitored initiating provocative activities to measure the amount of relief from block of the facetogenic pain. The patient reported a VAS of 7 prior to the procedure and a post-procedure VAS of 1. It has been a pleasure to assist in the diagnostic and therapeutic care of your patient. POST OP INSTRUCTIONS The patient was provided with a Pain Log to complete over the next several hours and subsequent days prior to the patient's follow up with the ordering physician. If the patient has government relations director relief to the solution applied, then they may be a candidate for medial branch rhizotomy. The patient is aware, was provided, once again, with a Pain Log and will follow up with the referring physician for review and clinical correlation.
== END 2023-08-10 16:42 | disposition home or self-care (01) ==
PROVIDERS: Family Provider Nurse Practitioner Family; Referring Provider Physical Medicine & Rehabilitation; Visit Provider Physical Medicine & Rehabilitation
DX: M47.816 Spondylosis without myelopathy or radiculopathy, lumbar region (principal); M47.817 Spondylosis without myelopathy or radiculopathy, lumbosacral region
CPT/HCPCS: 64493; 64494; 64495; 99152; J2250

== ENCOUNTER → 2023-09-20 06:47 | Outpatient (CLI) | payer OTHER, SELFPAY ==
--- NOTE | 2023-09-20 07:09 | DI.ECHO.S_ITS ---
[place] [facility] +---------+ : : [address] : [address] : : : : [id number] : : : : Phone: [phone]---------+ Echocardiogram Report + + :Name: JOSELITO GRANDE Study Date: 09/20/2023 Height: 69 in : :[facility] ReadingLocation: Weight: 220 lb : : Gender: Male BSA: 2.2 m2 : :: 1965 Age: 58 yrs BP: 138/91 mmHg: :Reason For Study: CONGENITAL AORTIC VALVE INSUFFICIENCY : :Ordering Physician: Sanchez RIVASformed By: Leatha Bergman : :Referring: RADHA DYE : + + Interpretation Summary Normal left ventricle size with ejection fraction 60-65%. The aortic valve is bicuspid. There is moderate aortic regurgitation. The ascending aorta is mildly enlarged. Procedure: A two-dimensional transthoracic echocardiogram with color flow and Doppler was performed. The study quality was technically adequate. There is no prior echocardiogram noted for this patient. The heart rate ranged between 70-85 bpm during the study. Left Ventricle: The left ventricle is normal in size and wall thickness. The ejection fraction is estimated to be 60-65%. There are no focal wall motion abnormalities. Diastolic function could not be accurately assessed due to confounding valvular disease. Right Ventricle: The right ventricle is normal in size and function. Atria: The left atrial size is normal. Right atrial size is normal. There is no Doppler evidence for an interatrial shunt. Mitral Valve: The mitral valve leaflets appear mildly thickened, but open well. There is trace mitral regurgitation. Aortic Valve: The aortic valve is bicuspid. The aortic valve is moderately calcified. There is moderately reduced leaflet mobility. The peak aortic velocity is 3.35 m/sec. The aortic valve mean gradient is 32.5 mmHg. The calculated aortic valve area is 1.9 cm2. There is moderate aortic regurgitation. Tricuspid Valve: The tricuspid valve is normal in structure and function. There is trace tricuspid regurgitation. Pulmonary artery pressures cannot be estimated because of the lack of a measurable TR jet velocity. Pulmonic Valve: The pulmonic valve leaflets are thin and pliable; valve motion is normal. There is mild pulmonic regurgitation. Great Vessels: The aortic root is mildly dilated. The ascending aorta is mildly enlarged. The IVC is of normal diameter and collapses greater than 50% with a sniff. This suggests a low right atrial pressure of 3 mm Hg. Pericardium/ Pleura There is no pericardial effusion. There is no pleural effusion. MMode/2D Measurements & Calculations LVIDd: 2.5 cm LVOT diam: 2.4 cm LVIDs: 3.2 cm Ao root diam: 4.0 cm FS: -28.4 % asc Aorta Diam: 4.0 cm EPSS: 1.5 cm Ao Arch Diam (Prox Trans): 3.1 cm IVSd: 0.94 cm LVPWd: 0.50 cm LV black. diameter/BSA (cm/m^2): 1.1 LV sys. diameter/BSA (cm/m^2): 1.5 LA A2 area: 19.9 cm2 RA long axis: 4.2 cm LA A4 area: 15.5 cm2 RA area: 11.6 cm2 LA length (vol): 4.6 cm RA vol: 27.1 ml LA vol: 57.0 ml RA : 12.6 ml/m2 LA vol index: 26.5 ml/m2 IVC diam: 1.8 cm RVD1 (basal): 4.3 cm TAPSE: 1.9 cm Doppler Measurements & Calculations Ao V2 max: 335.4 cm/sec LVOT Max Dharmesh: 139.4 cm/sec Ao V2 mean: 253.3 cm/sec LV V1 max P.8 mmHg Ao max P.2 mmHg LV V1 VTI: 28.6 cm Ao mean P.5 mmHg VENECIA(I,D): 2.0 cm2 Ao V2 VTI: 67.6 cm VENECIA(V,D): 1.9 cm2 sev ratio: 0.42 VENECIA indexed to BSA (cm^2/m^2): 0.92 AI P1/2t: 543.7 msec AI dec slope: 246.5 cm/sec2 MV E max dharmesh: 73.3 cm/sec PA V2 max: 145.3 cm/sec MV A max dharmesh: 71.7 cm/sec PA V2 mean: 109.0 cm/sec MV E/A: 1.0 PA mean P.3 mmHg Med Peak E' Dharmesh: 5.4 cm/sec PA pr(Accel): 25.9 mmHg E/E' med: 13.5 Lat Peak E' Dharmesh: 10.9 cm/sec E/E' lat: 6.7 E/e' average: 10.1 MV dec time: 0.18 sec SV(LVOT): 133.2 ml Electronically signed by: Car Crockett on Reading Physician:09/20/2023 04:33 PM
== END ==
LOC: ECHO 06:47
PROVIDERS: Family Provider Nurse Practitioner Family; PCP Nurse Practitioner Family; Referring Provider Nurse Practitioner Family; Visit Provider Nurse Practitioner Family
DX: Q23.1 Congenital insufficiency of aortic valve (principal); I37.1 Nonrheumatic pulmonary valve insufficiency; I77.810 Thoracic aortic ectasia; I77.89 Other specified disorders of arteries and arterioles
CPT/HCPCS: 93306

== ENCOUNTER → 2024-09-14 15:18 | Outpatient (CLI) | payer OTHER, SELFPAY ==
--- NOTE | 2024-09-14 15:19 | DI.RAD.S_ITS ---
PROCEDURE: XR LUMBAR SPINE MIN 4V INDICATIONS: BACK PAIN TECHNIQUE: 5 views of the lumbar spine were acquired, including bilateral oblique views. COMPARISON: [facility], , XR LUMBAR SPINE MIN 4V, 07/04/2021, 8:33. FINDINGS: Bones: 5 nonrib-bearing vertebrae are present. Normal bony alignment.. No vertebral body compression fractures. No suspicious bony lesions. Mild multilevel degenerative changes. Soft tissues: Overlying bowel gas pattern is normal. No suspicious soft tissue calcifications. Oblique images: No pars defects. IMPRESSION: No acute osseous abnormality. Mild multilevel degenerative changes. Approved by: Margot Hidalgo M.D.,Ph.D. on 09/14/2024 at 16:19
== END ==
PROVIDERS: Family Provider Nurse Practitioner Family; Referring Provider Physical Medicine & Rehabilitation; Visit Provider Physical Medicine & Rehabilitation
DX: M47.816 Spondylosis without myelopathy or radiculopathy, lumbar region (principal); M51.27 Other intervertebral disc displacement, lumbosacral region
CPT/HCPCS: 72110

== ENCOUNTER 2024-11-28 07:24 | Outpatient (CLI) | payer OTHER, SELFPAY ==
[2024-11-28] VITALS (13 sets, daily range): BP systolic 109–146; BP diastolic 66–79; PULSE 68–79; RESP 14–18; TEMP 36.8; O2SAT 94–99
[2024-11-28] MEDS: MIDAZOLAM 2 MG/2 ML VIAL IV (08:10)
[2024-11-28] MEDS: LIDOCAINE 1% 20 ML 5 ML INJ (08:19)
[2024-11-28] MEDS: BUPIVACAINE 0.5% (PF) 10 ML VIAL 5 ML INJ (08:19)
--- NOTE | 2024-11-28 08:50 | P.PCN_ITS ---
Date/Time/Diagnoses Date of procedure: 11/28/24 Time of procedure: 08:50 Pre-procedure diagnosis: 1. RECALCITRANT FACET ARTHROPATHY Post-procedure diagnosis: same Procedure Notes Procedure: 1. LEFT L3, L4 AND L5 MEDIAL BRANCH RADIOFREQUENCY NEUROTOMY AND LEFT S1 DORSAL RAMUS RADIOFREQUENCY NEUROTOMY, Indications: Alexis is referred by MIRIAM Alvarenga for treatment of facet arthropathy. Physician: Jake Lamar Total Fluoroscopy time (seconds): 12 Total sedation minutes: 33 Complications: none Procedure in detail & Post-procedure care: DESCRIPTION OF PROCEDURE Left L3, L4 and L5 medial branch radiofrequency neurotomy and left S1 dorsal ramus branch radiofrequency neurotomy under fluoroscopy with conscious sedation. The patient is well known to this clinic having undergone previous facet injections with good but temporary relief. The patient has experienced appropriate, concordant relief with previous facet and median branch blocks but the patient's pain has been recalcitrant to further conservative measures. Therefore, based upon the patient's relief and persistent symptoms, the patient is considered an appropriate candidate for facet rhizotomy. All of the patient's questions regarding the risks versus benefits of the procedure, including, but not limited to, bleeding, infection, temporary as well as lasting nerve injury, paralysis, stroke, and , as well treatment alternatives were answered to satisfaction. After obtaining informed consent, denial of pertinent drug allergies, as well as being made aware of the potential risks of bleeding, infection, spinal cord trauma, paralysis, temporary and permanent nerve damage, seizure, stroke, and possible , the patient was brought to the fluoroscopy suite and positioned prone on the fluoroscopy table. The lumbar region was prepped with Betadine and covered with a fenestrated drape in the usual sterile fashion. Appropriate monitors applied including pulse oximeter, pulse, and blood pressure for regular monitoring throughout the procedure. IV sedation was accomplished with a combination of 2mg of Versed titrated to patient comfort during the course of the procedure while the patient remained responsive to all verbal commands. After local infiltration using 1% lidocaine, under fluoroscopic guidance, a 10- cm RF insulated needle with a 10-mm active tip was positioned parallel to the junction of the left sacral ala and the superior articulating process where the S1 dorsal ramus resides. Needle placement was confirmed with sensory stimulation at 50 Hz, with motor stimulation of .5v on the left which produced local stimulation without radicular component. The stimulation was then increased to 2v with, once again, only local multifidus stimulation without radicular component. This was then followed by two discreet lesions performed at 80 degrees Celsius for 90 seconds each. The needle was then removed and the identical procedure was performed along the length of the left L5 medial branch with motor stimulation at .7v on the left. The identical procedure was once again performed along the length of the left L4 medial branch with motor stimulation of .5v on the left. The identical procedure was once again performed along the length of the left L3 medial branch with motor stimulation of .6v on the left. The patient tolerated the procedure well without signs or symptoms of complications prior to transfer to the recovery area continued monitoring without incident. The patient was then transferred to the recovery area where they were observed for an appropriate period of time after the injection. The patient was then transferred to the recovery area where they were observed for an appropriate period of time after the injection. The patient reported a VAS score of 9 prior to the procedure and a post- procedure VAS of 2. POST OP INSTRUCTIONS The patient was provided a Pain Log to continue to record the patient's response to the target-specific procedure prior to the patient's follow-up visit with the referring physician. Additionally, specific post-injection care instructions and a contact number to our office were provided if concerns arise regarding possible complications associated with the procedure are suspected.
== END 2024-11-28 09:10 | disposition home or self-care (01) ==
PROVIDERS: Family Provider Nurse Practitioner Family; Referring Provider Physical Medicine & Rehabilitation; Visit Provider Physical Medicine & Rehabilitation
DX: M47.816 Spondylosis without myelopathy or radiculopathy, lumbar region (principal); M47.817 Spondylosis without myelopathy or radiculopathy, lumbosacral region
CPT/HCPCS: 64635; 64636; 99152; 99153; J2250

== ENCOUNTER → 2024-12-06 06:53 | Outpatient (CLI) | payer OTHER, SELFPAY ==
--- NOTE | 2024-12-06 06:54 | DI.US.S_ITS ---
PROCEDURE: US ABDOMEN LIMITED INDICATIONS: RIGHT UPPER QUADRANT PAIN TECHNIQUE: Real-time scanning was performed of the abdominal and retroperitoneal organs, with image documentation. COMPARISON: None. FINDINGS: Liver: Increased liver echogenicity with posterior attenuation. No solid mass. Focal fat sparing adjacent to the gallbladder fossa. Gallbladder: No gallstones. No wall thickening. No pericholecystic edema. Negative sonographic Espinoza's sign. Biliary ducts: Intrahepatic bile ducts are non-dilated. Extrahepatic bile duct caliber measures 4 mm. Normal is 6-7 mm or less in diameter, or 10 mm or less post-cholecystectomy. Pancreas: Visualized portions of the pancreas are sonographically normal. Miscellaneous: No free abdominal fluid. IMPRESSION: Hepatic steatosis. In the absence of alcohol use or other confounding factors, elevated LFTs may indicate syaogzfgt-zexzfepzpac-tgbzeqibxb steatohepatitis (MASH). Dictated by: Hero Tello M.D. on 12/06/2024 at 9:12 Approved by: Hero Tello M.D. on 12/06/2024 at 9:14
== END ==
LOC: US 06:53
PROVIDERS: Family Provider Nurse Practitioner Family; Referring Provider Family Medicine; Visit Provider Family Medicine
DX: K76.0 Fatty (change of) liver, not elsewhere classified (principal); R10.9 Unspecified abdominal pain
CPT/HCPCS: 76705

== ENCOUNTER 2024-12-07 07:06 | Day surgery (SDC) | payer OTHER, SELFPAY ==
[2024-12-01 08:55] VITALS: BMI 33.0
--- NOTE | 2024-12-07 | PATH_ITS ---
[facility] Accession Number: [id number] No. of containers..03 Tissue . 01 Material submitted: . PART A: gastrointestinal site - ANTRUM PART B: appendix - APPENDICEAL ORIFICE PART C: ileum - TERMINAL ILEUM . 01 Diagnosis: Part A: ANTRUM: Gastric antral mucosa with no diagnostic alterations. No Helicobacter organisms identified on H/E stain. No intestinal metaplasia, dysplasia, or malignancy identified. . Part B: APPENDICEAL ORIFICE: Colonic mucosa with erosion and overlying inflammatory exudate. No dysplasia, malignancy, or infectious organisms identified. See comment. . Specimen Comments: The histologic differential includes ischemia or infectious etiologies, among other possibilities. The presence of some inflammatory exudate, while not specific, raises the possibility of Clostridium difficile colitis, and correlation with clinical and laboratory findings is recommended if indicated. . Part C: TERMINAL ILEUM: Ileal mucosa with no diagnostic alterations. No active inflammation, granulomas, or dysplasia identified. [facility] 12/11/2024 1537 Local . 01 Electronically signed: . Rolan Mane MD, Pathologist NPI- [id number] . 01 Gross description: . A. Received in formalin, labeled with two identifiers and antrum biopsy, are two perez soft tissue fragments measuring 0.4-0.7 cm in greatest dimension. Submitted in cassette A1. . B. Received in formalin, labeled with two identifiers and appendiceal orifice, are three perez soft tissue fragments measuring 0.2-0.3 cm in greatest dimension. Submitted in cassette B1. . C. Received in formalin, labeled with two identifiers and terminal ileum, are two perez soft tissue fragments measuring 0.3 cm and 0.4 cm in greatest dimension. Submitted in cassette C1. ([id number]) /ANNA 12/11/2024 1537 Local . Pathologist provided ICD-10: K63.3 . 01 CPT . 669072, [id number], 960371 Specimen Comment: A courtesy copy of this report has been sent to [phone] Performed at: [address] [id number] MD Rolan Mane MD Phone: [phone]
[2024-12-07] MEDS: LACTATED RINGERS 1,000 ML 42 ML IV (07:27)
[2024-12-07 07:28] VITALS: BP 160/96; PULSE 94; RESP 16; TEMP 37.1; O2SAT 95
--- NOTE | 2024-12-07 07:49 | P.HP_ITS ---
History of Present Illness History of Present Illness Date Patient Seen: 12/07/24 Time Patient Seen: 07:49 Chief complaint: EGD/Colonoscopy Narrative: Alexis is a 59 year old man here for an EGD and colonoscopy. His last colonoscopy was roughly 10 years ago here and he had one small polyp removed. He has had symptoms of dyspepsia and reflux recently and had a barium swallow that showed a hiatal hernia. [facility] Medical History (Updated 12/07/24 @ 07:51 by Bennett Zavala MD) HLD (hyperlipidemia) Aortic valve regurgitation (09/2024) Aortic stenosis with bicuspid valve (09/2024) Congenital heart defect HTN (hypertension) Heart murmur Meghan-Harris tear Chronic back pain GERD (gastroesophageal reflux disease) Facet arthropathy, lumbar Herniated nucleus pulposus, L5-S1, left Surgical History H/O shoulder surgery Family History Unknown No pertinent family history Social History household members: spouse Smoking Status: Former smoker alcohol intake: former Meds Home Medications and Allergies Home Medications Medication Instructions Recorded Confirmed Type acetaminophen 500 mg tablet 500 mg PO Q6H PRN Pain (Scale 07/04/21 12/07/24 History (Tylenol Extra Strength) Score 1-3) atorvastatin 20 mg tablet (Lipitor) 20 mg PO DAILY 07/04/21 12/07/24 History diclofenac sodium 1 % topical gel 2 g topical QID 07/04/21 12/07/24 History metronidazole 1 % topical gel g topical 09/23/22 09/18/24 History gabapentin 300 mg capsule 300 mg PO .COMPLEX #90 caps 04/05/23 12/07/24 Rx lisinopril 40 mg tablet 40 mg PO DAILY 04/05/23 12/07/24 History hydrochlorothiazide 12.5 mg tablet 12.5 mg PO DAILY 07/05/23 12/07/24 History alprazolam 0.5 mg tablet (Xanax) 0.5 mg PO .COMPLEX PRN Pre MRI or 09/18/24 12/07/24 Rx Procedure #5 tabs cholecalciferol (vitamin D3) 1,250 1,250 mcg PO QWEEK 09/18/24 12/07/24 History mcg (50,000 unit) capsule hydroxyzine HCl 25 mg tablet 25 mg PO BEDTIME 09/18/24 12/07/24 History omeprazole 20 mg capsule,delayed 20 mg PO DAILY 09/18/24 12/07/24 History release Allergies Allergy/AdvReac Type Severity Reaction Status Date / Time No Known Drug Allergies Allergy Verified 12/07/24 07:21 Exam Vital Signs (past 8 hours): - 12/07/24 07:28 Temperature 98.7 F Pulse Rate 94 H Respiratory Rate 16 Blood Pressure 160/96 H Pulse Oximetry 95 Oxygen Delivery Method Room Air Oxygen Delivery Method Room Air Const General: healthy appearing Assessment & Plan Assessment and plan (1) Colon cancer screening: Status: Acute (2) Dyspepsia: Status: Acute Plan EGD and colonoscopy Time-Based Coding :: [TOTAL MINUTES] spent with patient and on the chart (including review of chart, obtaining history, exam, reviewing outside data, placing orders, documenting exam and treatment plan, and counseling patient) on [DATE]. [employer] Document charge(s): No
--- NOTE | 2024-12-07 09:17 | PM.OP.EC ---
Operative Date/Time/Diagnoses Date of procedure: 12/07/24 Time of procedure: 09:17 Pre-op diagnosis: Dyspepsia and history of polyps Post-op diagnosis: same Procedure & Clinicians Study performed: EGD and colonoscopy Same procedure as scheduled: Yes Surgeon: Bennett Zavala Procedure Notes Procedure in detail: Surgeon: Bennett Zavala MD Anesthesia: Daksha Smith CRNA Procedure in detail: A timeout was performed. A bite blocked was placed and monitors were attached to the patient. The patient was positioned in the left lateral decubitus position. Sedation was administered. Once the patient was sedated the endoscope was inserted through the bite block and passed through the esophagus and stomach and into the duodenum. No abnormalities were seen in the duodenum. We then withdrew the scope into the stomach. There was some mild antritis and random biopsies were taken with cold forceps from the antrum. The endoscope was retroflexed and no significant hiatal hernia could be appreciated. The endoscope was straightned and withdrawn into the esophagus. No abnormalities were seen in the esophagus. EGD findings: Mild antritis and no significant hiatal hernia Next we repositioned the patient for a colonoscopy. A digital rectal exam was performed and was normal. The colonoscope was inserted and advanced to the cecum. The appendiceal orifice was identified and photographed. Appendiceal orifice appeared rather inflamed biopsies were taken with Jumbo forceps. Terminal ileum was intubated and no abnormalities were seen however biopsies were taken of the terminal ileum mucosa with cold forceps. The scope was slowly withdrawn over greater than 6 minutes. No other abnormalities were found. The scope was retroflexed in the rectum and no abnormalities were seen there. Colonoscopy findings: Inflammation around the appendiceal orifice Total procedural EBL: 5 mL Scope withdrawal time: 12 minutes Sedation minutes: 28 minutes Post-procedure Disposition: PACU
[2024-12-07 09:21] VITALS: BP 135/78; PULSE 88; RESP 17; TEMP 36.7; O2SAT 97
[2024-12-07 09:25] VITALS: BP 129/84; PULSE 88; RESP 16; O2SAT 98
[2024-12-07 09:43] VITALS: BP 122/84; PULSE 70; RESP 15; O2SAT 98
[2024-12-07 10:20] LABS: BUN Creatinine Ratio 18.2 (6-22); Blood Urea Nitrogen 18 mg/dL (9-20); Calcium 9.7 mg/dL (8.4-10.2); Carbon Dioxide 29 mmol/L (22-32); Chloride 102 mmol/L (98-107); Estimated Glomerular Filt Rate > 60 mL/min (>60); Glucose 102 mg/dL (70-100); HEMOLYSIS < 15 (0-50); Sodium 138 mmol/L (137-145)
== END 2024-12-07 09:50 | disposition home or self-care (01) ==
PROVIDERS: Family Provider Nurse Practitioner Family; Referring Provider Surgery; Visit Provider Surgery
PROC: 0DJ08ZZ Inspection of Upper Intestinal Tract, Via Natural or Artificial Opening Endoscopic (ICD-10-PCS; CPT 45380; principal; 2024-12-07 08:15)
PROC: 0DJD8ZZ Inspection of Lower Intestinal Tract, Via Natural or Artificial Opening Endoscopic (ICD-10-PCS; CPT 45378; 2024-12-07 08:15)
DX: Z12.11 Encounter for screening for malignant neoplasm of colon (principal); Z86.0100 Personal history of colon polyps, unspecified; R10.13 Epigastric pain; K29.50 Unspecified chronic gastritis without bleeding; K63.3 Ulcer of intestine
CPT/HCPCS: 45380; 43239; 36415; 80048; J2704

== ENCOUNTER → 2024-12-20 13:56 | Outpatient (CLI) | payer OTHER, SELFPAY ==
--- NOTE | 2024-12-20 13:57 | DI.CT.S_ITS ---
PROCEDURE: CT ABDOMEN PELVIS W CON INDICATIONS: abdominal pain TECHNIQUE: After the administration of intravenous contrast, axial sections acquired from the lung bases to the pubic symphysis. Coronal and sagittal reformats were performed. For radiation dose reduction, the following was used: automated exposure control, adjustment of mA and/or kV according to patient size. COMPARISON: [facility], US ABDOMEN LIMITED, 12/06/2024, 7:20. FINDINGS: Image quality: Diagnostic. Lower Chest: No significant findings. ABDOMEN: Liver: No solid mass. Gallbladder: No radiopaque gallstones or wall thickening. Biliary ducts: No biliary dilation. Pancreas: No ductal dilation. Spleen: Size is within normal limits. Adrenal Glands: No adrenal nodules. Kidneys and Ureters: No hydronephrosis. No solid mass. No complex renal cystic lesion which requires follow up. Stomach and Bowel: Normal colonic caliber, without significant wall thickening. Peritoneum: No abnormal intraperitoneal fluid. No free air. Ventral Wall: No significant ventral hernia. Abdominal Nodes: No retroperitoneal or mesenteric adenopathy by size criteria. Vessels: Aorta and inferior vena cava are normal in size. PELVIS: Pelvic Organs: Unremarkable. Bladder: No bladder wall thickening, accounting for underdistention. Pelvic Nodes: No enlarged lymph nodes. Miscellaneous: No inguinal hernias are seen. Normal appendix found right lower quadrant. Bones: No aggressive osseous abnormality. IMPRESSION: No mass seen within the right colon. Stool, however, is present to the degree that clear visualization of the small nodule would not be likely possible. No adenopathy seen, no distant metastatic disease suspected. Normal appendix found right lower quadrant. Dictated by: Alexis Abarca M.D. on 12/21/2024 at 11:37 Approved by: Alexis Abarca M.D. on 12/21/2024 at 11:40
== END ==
PROVIDERS: Family Provider Nurse Practitioner Family; Referring Provider Surgery; Visit Provider Surgery
DX: R10.13 Epigastric pain (principal)
CPT/HCPCS: 74177; Q9967

== ENCOUNTER → 2025-03-03 09:45 | Outpatient (CLI) | payer OTHER, SELFPAY ==
--- NOTE | 2025-03-03 09:47 | DI.MRI.S_ITS ---
PROCEDURE: MR LUMBAR SPINE WO CON INDICATIONS: Progressive LBP TECHNIQUE: Noncontrast sagittal T1 spin echo and T2 fast echo, sagittal STIR, and T2 fast spin echo through the lumbar spine. In cases with scoliosis, additional coronal T2 fast spin echo may be performed. COMPARISON: [facility], MR, MR LUMBAR SPINE WO CON, 07/26/2021, 10:23. FINDINGS: Image quality: Excellent. Alignment and Curvature: There is normal bony alignment. Bone Marrow: Marrow is of normal overall signal. No acute vertebral body compression fractures. Spinal Cord: Conus medullaris terminates at the T12 level. Visualized cord demonstrates normal signal and size. Paraspinous Soft Tissues: No paravertebral masses. T12-L1: Normal appearance. L1-L2: Normal appearance. L2-L3: Mild disc desiccation and mild disc height loss. Mild circumferential disc bulge and bilateral facet arthropathy. No foraminal or central canal stenosis. L3-L4: Mild circumferential disc bulge and moderate facet arthropathy. Minor central canal narrowing and mild bilateral foraminal narrowing. L4-L5: Mild circumferential disc bulge flattening the anterior CSF. Prominent facet arthropathy and ligamentum flavum hypertrophy. Bilateral lateral recess narrowing and moderate to severe central canal stenosis. This has progressed since the prior exam. Mild left foraminal narrowing. L5-S1: Mild broad-based posterior disc bulge and narrowing of the left lateral recess with disc material touching the left S1 nerve root. Mild facet arthropathy. [id number]-ca-swxwvmav left foraminal stenosis, similar compared to prior. IMPRESSION: Prominent facet arthropathy and ligamentum flavum hypertrophy at L4-5, in combination with minor broad-based disc bulge causes moderate to severe central canal stenosis and lateral recess narrowing, progressed compared to prior. There is stable appearance of broad-based disc bulge touching the left S1 nerve root at the L5-S1 level, and stable moderate to severe left foraminal stenosis at this level. Dictated by: Lilliana Carpenter M.D. on 03/05/2025 at 10:47 Approved by: Lilliana Carpenter M.D. on 03/05/2025 at 10:58
== END ==
PROVIDERS: Family Provider Nurse Practitioner Family; Visit Provider Physical Medicine & Rehabilitation
DX: M51.27 Other intervertebral disc displacement, lumbosacral region (principal); M47.816 Spondylosis without myelopathy or radiculopathy, lumbar region; M47.817 Spondylosis without myelopathy or radiculopathy, lumbosacral region; M51.369 Other intervertebral disc degeneration, lumbar region without mention of lumbar back pain or lower extremity pain; M51.379 Other intervertebral disc degeneration, lumbosacral region without mention of lumbar back pain or lower extremity pain; M48.061 Spinal stenosis, lumbar region without neurogenic claudication; M48.07 Spinal stenosis, lumbosacral region
CPT/HCPCS: 72148

== ENCOUNTER → 2025-05-31 14:48 | Outpatient (CLI) | payer OTHER, SELFPAY ==
[2025-05-31 15:45] VITALS: BP 127/69; PULSE 70; RESP 16; TEMP 36.7; O2SAT 95
[2025-05-31 16:15] VITALS: BP 132/80; PULSE 58; RESP 16; O2SAT 99
[2025-05-31] MEDS: MIDAZOLAM 2 MG/2 ML VIAL IV (16:18)
[2025-05-31 16:20] VITALS: BP 119/77; PULSE 58; RESP 16; O2SAT 99
[2025-05-31] MEDS: BETAMETHASONE 30 MG/5 ML MDV 12 MG INJ (16:23)
[2025-05-31 16:25] VITALS: BP 118/72; PULSE 59; RESP 17; O2SAT 98
[2025-05-31] MEDS: LIDOCAINE 1% 20 ML INJ (16:25)
[2025-05-31] MEDS: BETAMETHASONE 30 MG/5 ML MDV 6 MG INJ (16:27)
[2025-05-31 16:30] VITALS: BP 117/81; PULSE 58; RESP 16; O2SAT 98
--- NOTE | 2025-05-31 16:37 | PM.PROC.IR.1 ---
Date/Time/Diagnoses Date of procedure: 05/31/25 Time of procedure: 16:37 Pre-procedure diagnosis: 1. FORAMINAL STENOSIS WITH LE SYMPTOMS Post-procedure diagnosis: same Procedure Notes Procedure: 1. FLUOROSCOPICALLY GUIDED CONTRAST CONTROLLED TRANSFORAMINAL EPIDURAL STEROID INJECTION - LEFT L4/5 Indications: Mustapha Espinoza is referred for treatment of Foraminal Stenosis with Left LE Symptoms Physician: Jake Lamar Total Fluoroscopy time (seconds): 9 Total sedation minutes: 15 Complications: none Procedure in detail & Post-procedure care: FINDINGS Foraminal Nerve Root Compression secondary to disc disease and facet hypertrophy DESCRIPTION OF PROCEDURE Following review of allergy and review of potential side effects and complications, including, but not necessarily limited to, infection, allergic reaction, local tissue breakdown, stroke, temporary or permanent nerve injury, paralysis, and possible , the patient indicated that the patient understood and agreed to proceed. An informed consent document was signed by the patient, witnessed by a nurse, and placed in the patient's chart. Additionally, other treatment options including medications, modalities, and physical therapy were reviewed with the patient. After review of previous anaesthesic history and IV conscious sedation the patient was deemed safe to proceed with today?s procedure with IV conscious sedation as ASA class II designation. Safety time-out was performed to confirm patient ID, procedure to be performed and site of procedure. IV sedation was accomplished with a combination of 2mg of Versed administered by the RN after DO order, titrated to patient comfort during the course of the procedure while the patient remained responsive to all verbal commands In the prone position following sterile prep and drape of the lumbar region, the left L4/5 posterior neuroforamen was identified fluoroscopically. The skin was anesthetized via a 25-gauge 1.5-inch needle with 1% lidocaine solution. At this point, a 25-gauge 3.5-inch spinal needle was atraumatically introduced and advanced under fluoroscopic guidance through the posterior left L4/5 neuroforamen to approximately the anterior aspect of the canal. Depth was confirmed on lateral view. Following negative aspiration, injection of approximately 1.5 cc of Isovue 200 under live fluoroscopy in the AP view confirmed excellent flow along the nerve root, into the epidural space without vascular or intrathecal uptake observed Radiological data, including multiple fluoroscopic views of the lumbosacral spine, reveal a spinal needle at the left L4/5 posterior neuroforamen. Subsequent views show flow of contrast material flowing superiorly and inferiorly along the nerve root confirming epidural flow. Subsequently, a test dose of 1.5cc of 0.25% marcaine solution was administered and patient was observed for two minutes for signs or symptoms of complications, including abdominal pain, shortness of breath, bilateral upper or lower extremity weakness, nausea and vomiting, prior to steroid injection. At this point, a total of 3cc or 10mg of dexamethasone and 12mg of betamethasone was injected without incident. The procedure tolerated the procedure well without signs or symptoms of complications prior to transfer to the recovery area continued monitoring without incident. The patient was then transferred to the recovery area where they were observed for an appropriate time after the injection. The patient reported a VAS score of 7 prior to the procedure and a post-procedure VAS of 0. POST OP INSTRUCTIONS The patient was provided a Pain Log to continue to record their response to the target-specific procedure prior to follow-up visit with their referring physician. Additionally, specific post-injection care instructions and a contact number to our office were provided if concerns arise regarding possible complications associated with the procedure are suspected.
--- NOTE | 2025-05-31 16:38 | PM.PROC.IR.1 ---
Date/Time/Diagnoses Date of procedure: 05/31/25 Time of procedure: 16:38 Pre-procedure diagnosis: 1. FORAMINAL STENOSIS WITH LE SYMPTOMS Post-procedure diagnosis: same Procedure Notes Procedure: 1. FLUOROSCOPICALLY GUIDED CONTRAST CONTROLLED TRANSFORAMINAL EPIDURAL STEROID INJECTION - Left L5/S1 Indications: Mustapha Espinoza is referred for treatment of Foraminal Stenosis with Left LE Symptoms Physician: Jake Lamar Total Fluoroscopy time (seconds): 9 Total sedation minutes: 15 Complications: none Procedure in detail & Post-procedure care: FINDINGS Foraminal Nerve Root Compression secondary to disc disease and facet hypertrophy DESCRIPTION OF PROCEDURE Following review of allergy and review of potential side effects and complications, including, but not necessarily limited to, infection, allergic reaction, local tissue breakdown, stroke, temporary or permanent nerve injury, paralysis, and possible , the patient indicated that the patient understood and agreed to proceed. An informed consent document was signed by the patient, witnessed by a nurse, and placed in the patient's chart. Additionally, other treatment options including medications, modalities, and physical therapy were reviewed with the patient. After review of previous anaesthesic history and IV conscious sedation the patient was deemed safe to proceed with today?s procedure with IV conscious sedation as ASA class II designation. Safety time-out was performed to confirm patient ID, procedure to be performed and site of procedure. IV sedation was accomplished with a combination of 2mg of Versed was administered by the RN after DO order, titrated to patient comfort during the course of the procedure while the patient remained responsive to all verbal commands In the prone position following sterile prep and drape of the lumbar region, the Left L5/S1 posterior neuroforamen was identified fluoroscopically. The skin was anesthetized via a 25-gauge 1.5-inch needle with 1% lidocaine solution. At this point, a 25-gauge 3.5-inch spinal needle was atraumatically introduced and advanced under fluoroscopic guidance through the posterior Left L5/S1 neuroforamen to approximately the anterior aspect of the canal. Depth was confirmed on lateral view. Following negative aspiration, injection of approximately 1.5 cc of Isovue 200 under live fluoroscopy in the AP view confirmed excellent flow along the nerve root, into the epidural space without vascular or intrathecal uptake observed. Radiological data, including multiple fluoroscopic views of the lumbosacral spine, reveal a spinal needle at the Left L5/S1 posterior neuroforamen. Subsequent views show flow of contrast material flowing superiorly and inferiorly along the nerve root confirming epidural flow. Subsequently, a test dose of 1.5cc of 0.25%marcaine solution was administered and patient was observed for two minutes for signs or symptoms of complications, including abdominal pain, shortness of breath, bilateral upper or lower extremity weakness, nausea and vomiting, prior to steroid injection. At this point, a total of 3cc or 10mg of dexamethasone and 12mg of betamethasone was injected without incident. The procedure tolerated the procedure well without signs or symptoms of complications prior to transfer to the recovery area continued monitoring without incident. The patient was then transferred to the recovery area where they were observed for an appropriate time after the injection. The patient reported a VAS score of 7 prior to the procedure and a post-procedure VAS of 0. POST OP INSTRUCTIONS The patient was provided a Pain Log to continue to record their response to the target-specific procedure prior to follow-up visit with their referring physician. Additionally, specific post-injection care instructions and a contact number to our office were provided if concerns arise regarding possible complications associated with the procedure are suspected.
== END ==
LOC: RAD 14:48
PROVIDERS: Referring Provider Physical Medicine & Rehabilitation; Visit Provider Physical Medicine & Rehabilitation
DX: M48.061 Spinal stenosis, lumbar region without neurogenic claudication (principal); M48.07 Spinal stenosis, lumbosacral region; M51.16 Intervertebral disc disorders with radiculopathy, lumbar region; M51.17 Intervertebral disc disorders with radiculopathy, lumbosacral region; M47.26 Other spondylosis with radiculopathy, lumbar region; M47.27 Other spondylosis with radiculopathy, lumbosacral region
CPT/HCPCS: 64483; 64484; 99152; J0702; J1100; J2250